=== PATIENT | female | born 2000 | race Caucasian/White ===

== ENCOUNTER 2020-03-31 18:41 | Emergency (ER) | payer BC ==
--- NOTE | 2020-03-31 19:01 | TELE ---
HPI Do you have fever,cough or shortness of breath?: Yes - General Reason For Visit: COVID TESTING History Source: Patient - History of Present Illness Timing/Duration: other Review of Systems - Review of Systems Constitutional: No: Chills, Fever HEENTM: Yes: Other (loss of smell) Respiratory: No: Cough, Shortness of Breath Cardiac (ROS): No: Chest Pain *Physical Exam - Physical Exam HEENT: positive: Normal Voice - Medical Decision Making 03/31/20 19:00 19 yo F, no sig hx, req covid swab as visiting [place] last week w/ her sister and now both pt and sister w/ loss of smell. No cough, sob, CP, f/c Discharge Diagnosis at time of Disposition: Encounter by telehealth for suspected COVID-19 - Referrals - Patient Instructions - Discharge Disposition: HOME
== END 2020-03-31 19:02 | disposition home or self-care (01) ==
LOC: JVIRT 18:41
DX: Z11.59 Encounter for screening for other viral diseases (principal)
CPT/HCPCS: Q3014-GT; U0003